=== PATIENT | female | born 1975 | race Caucasian/White ===

== ENCOUNTER → 2024-07-08 | Outpatient (CLI) | payer MEDICAID, SELFPAY ==
--- NOTE | 2024-07-08 12:00 | XR_ITS ---
Examination: Breast ultrasound, unilateral, right complete Date and time of exam: July 08, 2024 1217 hours INDICATIONS: Mammogram June 05, 2024 12 mm mass lower outer right breast Technique: Real-time kiser scale ultrasonographic imaging performed right breast including all 4 quadrants as well as nipple retroareolar and axillary region. Findings: 12:00 irregular nodule 3 x 5 mm lobular margins 1:00 circumscribed nodule 4 x 4 millimeter 2:00 irregular nodule lobular margins 5 x 4 mm 6:00 cyst 5 x 4 mm 7:00 irregular nodule indistinct margins, 8 x 10 x 11 mm IMPRESSION: BI-RADS Category 4: Suspicious for malignancy Suspicious mass 7:00 position right breast, biopsy is needed to exclude breast carcinoma, this mass is amenable to ultrasound-guided breast biopsy for diagnosis
--- NOTE | 2024-07-08 13:00 | XR_ITS ---
Examination: Diagnostic digital mammography, unilateral, right Computer aided detection 3-D breast Tomosynthesis, unilateral Date and time of exam: July 08, 2024 1244 hours INDICATIONS: Outside mammogram June 05, 2024 12 mm mass lower outer quadrant right breast Technique: Nonmagnified MLO, CC views of the right breast have been obtained, reconstructed from 3-D Tomosynthesis images. R2 computer aided detection program utilized for evaluation of suspicious masses and/or abnormal calcifications. 3-D Tomosynthesis images obtained. Findings: Scattered areas of fibroglandular density Spiculated mass is confirmed outer upper right breast Impression: BI-RADS category 4: Suspicious for malignancy Suspicious mass upper outer right breast, biopsy of this mass under mammographic guidance is needed to exclude breast carcinoma Also please see the breast ultrasound report today and recommendations for additional biopsies
== END | disposition home or self-care (01) ==
PROVIDERS: PCP Physician Assistant; Referring Provider Physician Assistant; Visit Provider Physician Assistant
DX: R92.341 Mammographic extreme density, right breast (principal); N63.11 Unspecified lump in the right breast, upper outer quadrant; N63.13 Unspecified lump in the right breast, lower outer quadrant
CPT/HCPCS: 76641; 77061; 77065; G0279

== ENCOUNTER → 2024-08-07 | Outpatient (CLI) | payer MEDICAID, SELFPAY ==
[2024-08-07 10:08] LABS: Basophils # (Auto) 0.1 Thou/mm3 (0.0-0.2); Basophils % (Auto) 1 % (0-2.5); Eosinophils # (Auto) 0.1 Thou/mm3 (0.0-0.5); Eosinophils % (Auto) 2 % (0-10); Hematocrit 38.1 % (36.0-46.0); Hemoglobin 12.9 g/dL (12.0-16.0); Immature Granulocytes % (Auto) 1 % (0-0); Immature Granulocytes Auto 0.04 Thou/mm3 (0.00-0.00); Lymphocytes % (Auto) 12 % (10-50); Mean Corpuscular HGB Conc 33.9 g/dl (31.0-37.0); Mean Corpuscular Hemoglobin 31.1 pg (25.0-35.0); Mean Corpuscular Volume 92 fL (80-100); Monocytes # (Auto) 0.5 Thou/mm3 (0.0-0.8); Monocytes % (Auto) 6 % (0-12); Neutrophils # (Auto) 6.5 Thou/mm3 (1.8-7.7); Neutrophils % (Auto) 79 % (37-80); Nucleated Red Blood Cell % 0 /100 WBC (0); Platelet Count 288 Thou/mm3 (140-440); RDW Standard Deviation 42.4 fL (36.4-46.3); Red Blood Count 4.15 Miln/mm3 (4.00-5.20); White Blood Count 8.2 Thou/mm3 (3.6-11.0)
[2024-08-07 10:20] LABS: Partial Thromboplastin Time 32.1 Seconds (22.0-36.0); Prothrombin Time 11.2 Seconds (9.0-12.2)
[2024-08-07 10:26] LABS: HCG,Qualitative Serum Negative
--- NOTE | 2024-08-08 08:30 | XR_ITS ---
Examination: Stereotactic guided vacuum assisted right breast biopsy with clip placement Specimen radiograph Date and time of exam:August 08, 2024 0907 hours INDICATIONS: Mammogram July 08, 2024 BI-RADS 4 suspicious spiculated mass outer upper right breast Timeout performed, documenting correct patient, order, referring physician, patient's site and reason for procedure, allergies to medications Informed consent provided. Time out performed Technique: The lesion right breast was localized with a stereotactic apparatus. Local anesthesia was obtained after prepping the skin at the entrance site and applying sterile drape Maximum sterile barrier technique. Or core biopsies were then obtained, vacuum assisted, stereotactically guided, at the lesion site. Specimens appear adequate. Stereotactic breast marker was introduced at the lesion site Estimated blood loss 2 cc. Patient tolerated the procedure well and appeared in satisfactory and stable condition at completion of the procedure Pathology report to follow Impression: Successful stereotactic breast biopsy as described above. .
== END | disposition home or self-care (01) ==
PROVIDERS: Radiology Diagnostic Radiology; PCP Physician Assistant; Referring Provider Physician Assistant; Visit Provider Physician Assistant
DX: D24.2 Benign neoplasm of left breast (principal); N60.11 Diffuse cystic mastopathy of right breast; R92.0 Mammographic microcalcification found on diagnostic imaging of breast
CPT/HCPCS: 19081; 36415; 84703; 85025; 85610; 85730; A4648; A4649

== ENCOUNTER → 2024-09-19 | Outpatient (CLI) | payer MEDICAID, SELFPAY ==
[2024-09-18 12:19] LABS: Basophils % (Auto) 1 % (0-2.5); Eosinophils # (Auto) 0.2 Thou/mm3 (0.0-0.5); Eosinophils % (Auto) 3 % (0-10); Hematocrit 36.8 % (36.0-46.0); Hemoglobin 12.7 g/dL (12.0-16.0); Immature Granulocytes % (Auto) 0 % (0-0); Immature Granulocytes Auto 0.02 Thou/mm3 (0.00-0.00); Lymphocytes # (Auto) 1.6 Thou/mm3 (1.0-4.8); Lymphocytes % (Auto) 26 % (10-50); Mean Corpuscular HGB Conc 34.5 g/dl (31.0-37.0); Mean Corpuscular Volume 90 fL (80-100); Monocytes # (Auto) 0.4 Thou/mm3 (0.0-0.8); Monocytes % (Auto) 6 % (0-12); Neutrophils % (Auto) 64 % (37-80); Nucleated Red Blood Cell % 0 /100 WBC (0); Platelet Count 359 Thou/mm3 (140-440); RDW Standard Deviation 45.8 fL (36.4-46.3); White Blood Count 6.2 Thou/mm3 (3.6-11.0)
[2024-09-18 12:35] LABS: Prothrombin Time 10.9 Seconds (9.0-12.2)
[2024-09-18 12:37] LABS: Beta HCG,Quantitative < 1 mIU/mL (<5.0)
--- NOTE | 2024-09-19 10:30 | XR_ITS ---
Examinations: Ultrasound-guided percutaneous breast biopsy, right breast 7:00 nodule Right breast sonography limited INDICATIONS: BI-RADS 4 suspicious nodule 12:00 position right breast right breast sonogram July 08, 2024. Exam date and time: September 19 11:20 AM. Informed consent provided. Technique: A timeout was completed verifying correct patient, procedure, site, positioning, and special equipment if applicable Informed consent provided. The patient was placed in a supine position for the breast biopsy. Sonographic images of the breast were performed for localization of the suspicious nodule The patient's breast was prepped and draped in sterile fashion. Maximum sterile barrier technique, hand hygiene, ultrasound sterile technique 1% lidocaine was used to anesthetize the skin and breast adjacent to the suspicious nodule. Utilizing ultrasonographic guidance, 8 core biopsies were obtained of the suspicious nodule utilizing an 18-gauge BioPince needle. The specimens appears satisfactory. US guided breast biopsy marker placement. Estimated blood loss 3 cc. The patient tolerated the procedure well and there were no complications. Impression: Successful ultrasound-guided percutaneous breast biopsy, right breast 7:00 nodule. Ultrasound guided breast biopsy marker placement.
== END | disposition home or self-care (01) ==
LOC: SDIM 10:04
PROVIDERS: Radiology Diagnostic Radiology; PCP Physician Assistant; Referring Provider Physician Assistant; Visit Provider Physician Assistant
DX: C50.511 Malignant neoplasm of lower-outer quadrant of right female breast (principal); Z17.0 Estrogen receptor positive status [ER+]; Z17.31 Human epidermal growth factor receptor 2 positive status; Z17.21 Progesterone receptor positive status; Z01.812 Encounter for preprocedural laboratory examination
CPT/HCPCS: 19083; 36415; 84702; 85025; 85610; 85730; A4648

== ENCOUNTER → 2024-10-24 | Outpatient (CLI) | payer MEDICAID, SELFPAY ==
--- NOTE | 2024-10-24 13:30 | XR_ITS ---
Examination: MRI bilateral breasts without intravenous contrast MRI bilateral breasts with intravenous contrast Date and time: October 24, 2024, 1403 hours Comparison breast biopsy September 19, 2024 BI-RADS 4 suspicious nodule 12:00 position right breast positive for malignancy INDICATIONS: Ultrasound-guided biopsy September 19, 2024 7:00 nodule right breast positive for breast cancer TECHNIQUE AND FINDINGS: Bilateral breast MRI images pre and post intravenous administration 15 cc gadolinium Scattered areas of fibroglandular density Mild background breast enhancement 7:00 mass spiculated margins 13 x 12 mm Rapid wash-in and washout on the postcontrast analysis Additional suspicious mass lesions not identified No chest wall mass No pathologic lymphadenopathy IMPRESSION: BI-RADS Category 5, biopsy-positive lesion for breast carcinoma 7:00 position right breast, 13 x 12 mm
== END | disposition home or self-care (01) ==
LOC: SMRI 13:07
PROVIDERS: PCP Physician Assistant; Referring Provider Surgery; Visit Provider Surgery
DX: C50.511 Malignant neoplasm of lower-outer quadrant of right female breast (principal)
CPT/HCPCS: 77049; A9579; C8908

== ENCOUNTER 2024-11-13 10:57 | Outpatient (RCR) | payer MEDICAID, SELFPAY ==
--- NOTE | 2024-11-04 02:25 | CTCCONSULT_ITS ---
Patient: NAEL DANIELS : 1975 MR#: [id number] Page 2 of 3 CONSULTATION NOTE DATE OF CONSULTATION: 10/30/2024 NAME: NAEL DANIELS ACCOUNT: [id number] : 1975 AGE: 48 REFERRING PHYSICIAN: Bruce Barragan MD PRIMARY PHYSICIAN: REASON FOR VISIT: Establishing care for invasive ductal carcinoma of the right breast ONCOLOGY HISTORY: DIAGNOSIS: Invasive ductal carcinoma of the right breast DATE OF DIAGNOSIS: 09/19/2024 PATHOLOGY: Invasive ductal carcinoma of the right breast ER/KS positive HER2 1+ STAGE/TNM: Pending TREATMENT HISTORY: Care?Plan Start?Date Cycle Day Intent HISTORY OF PRESENT ILLNESS: 48-year-old male who is diagnosed with right breast cancer after routine screening mammogram. Patient had 2 spots on the right breast. First biopsy was done on July 2024 of the right upper quadrant which showed only fibrocystic changes. Second biopsy completed on 09/19/2024 showed invasive ductal carcinoma. Breast mass is nonpalpable 09/19/2024 breast right ultrasound-guided biopsy shows invasive ductal carcinoma ER more than 90% KS more than 90% HER2 1+ OTHER MEDICAL HISTORY/CONDITIONS: DENIES KNEE?REPAIR??L??2013 FAMILY HISTORY: Patient?denies?family?cancer?history. 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 tamoxifen - 20 mg 1 tab Daily 2. Wegovy - 0.25 mg Weekly Medications Last Reconciled by Liliya Zhong LVN on 10/31/2024 ALLERGIES: No Known Drug Allergies REVIEW OF SYSTEMS: A complete 14-point review of systems was performed and is negative except as noted in interval history. PHYSICAL EXAMINATION: VITAL SIGNS: Temperature?99.4, B/P?114/82, Height?64?inches Weight?174?lbs PAIN: 0 - No pain ECOG Performance Status: 0 - Asymptomatic and fully active GENERAL APPEARANCE: Appears well, in no apparent distress, appropriately interactive. HEENT: Normocephalic, no temporal wasting, normal conjunctiva, no scleral icterus, normal hearing, lips without lesions, neck normal range of motion. CARDIOVASCULAR: Not assessed. PULMONARY: Normal respiratory effort, no respiratory distress or use of accessory muscles, speaking in full sentences, no tachypnea. EXTREMITIES: No pedal edema or cyanosis. SKIN: Normal skin appearance. NEUROLOGIC: Alert and oriented x4. PSHYCHIATRIC: Appropriate affect, mood normal, behavior normal, intact thought and speech. LABORATORY DATA: I have personally reviewed and interpreted each of the patient?s relevant lab tests, abnormal findings are below: Date ASSESSMENT/PLAN: Right invasive ductal carcinoma ER/KS positive HER2 1+ Surgery referral for lumpectomy Radiation oncology referral Will start on antiendocrine therapy Patient can start after surgery Oncotype DX Will do hormone testing MARK Patient already have follow-up with Dr. Yves Poon ORDERS: Order # Description [id number] MD Follow Up 4 Week [id number] Estradiol + Gonadotropin (Fsh) + Gonadotropin; Luteinizing Hormone (Lh) RETURN TO CLINIC: I reviewed the diagnosis, prognosis, and recommended treatment/procedure options with the patient (and/or their legal healthcare representative), including the potential benefits, risks, side effects and alternative therapies. We also discussed the option of no treatment and the possibility of clinical trial participation, if applicable. All questions were addressed, and they demonstrated understanding. They provided informed consent to proceed with the proposed plan of care. BILLING AND COMPLIANCE: I reviewed external records from providers outside my specialty as summarized above. I spent a total of 50 minutes on this patient?s care on the day of their visit excluding time spent related to any billed procedures. This time includes time spent with the patient as well as time spent documenting in the medical record, reviewing patients records and tests, obtaining history, placing orders, communicating with other healthcare professionals, counseling the patient, family or caregiver, and/or care coordination for the diagnoses above. Electronically Signed by: Brian Arias MD T: 2:23 AM CC: PCP: Referring: Bruce Barragan This document was completed utilizing speech recognition software. Grammatical errors, random word insertions, pronoun errors, and incomplete sentences are an occasional consequence of this system due to software limitations, ambient noise, and hardware issues. Any formal questions or concerns about the content, text or information contained within the body of this dictation should be directly addressed to the provider for clarification.
== END 2024-11-24 23:59 | disposition home or self-care (01) ==
LOC: SCTC 10:57
PROVIDERS: PCP Physician Assistant; Referring Provider Physician Assistant; Visit Provider Radiology Therapeutic Radiology
DX: C50.511 Malignant neoplasm of lower-outer quadrant of right female breast (principal); Z17.0 Estrogen receptor positive status [ER+]; Z17.21 Progesterone receptor positive status; Z17.32 Human epidermal growth factor receptor 2 negative status
CPT/HCPCS: 99212; 99213; G0463

== ENCOUNTER 2024-12-03 10:25 | Outpatient (RCR) | payer MEDICAID, SELFPAY ==
--- NOTE | 2024-12-03 15:15 | CTCFLWUP_ITS ---
Patient: NAEL DANIELS : 1975 Page 2 of 3 FOLLOW UP NOTE DATE OF SERVICE: 12/03/2024 NAME: NAEL DANIELS ACCOUNT: [id number] : 1975 AGE: 48 INTERVAL HISTORY: Scheduled for surgery ONCOLOGY HISTORY: DIAGNOSIS: Invasive ductal carcinoma of the right breast DATE OF DIAGNOSIS: 09/19/2024 PATHOLOGY: Invasive ductal carcinoma of the right breast ER/AL positive HER2 1+ STAGE/TNM: Pending TREATMENT HISTORY: Care?Plan Start?Date Cycle Day Intent HISTORY OF PRESENT ILLNESS: 48-year-old male who is diagnosed with right breast cancer after routine screening mammogram. Patient had 2 spots on the right breast. First biopsy was done on July 2024 of the right upper quadrant which showed only fibrocystic changes. Second biopsy completed on 09/19/2024 showed invasive ductal carcinoma. Breast mass is nonpalpable 09/19/2024 breast right ultrasound-guided biopsy shows invasive ductal carcinoma ER more than 90% AL more than 90% HER2 1+ OTHER MEDICAL HISTORY/CONDITIONS: DENIES KNEE?REPAIR??L??2013 FAMILY HISTORY: Patient?denies?family?cancer?history. 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 tamoxifen - 20 mg 1 tab Daily 2. Wegovy - 0.25 mg Weekly Medications Last Reconciled by Veronica Llanos MD on 12/03/2024 ALLERGIES: No Known Drug Allergies REVIEW OF SYSTEMS: A complete 14-point review of systems was performed and is negative except as noted in interval history. PHYSICAL EXAMINATION: VITAL SIGNS: Temperature?98.6, B/P?118/81, Oxygen?Saturation?97% Weight?173?lbs (Change?since?8/20/25:?1?lbs) PAIN: 0 - No pain GENERAL APPEARANCE: Appears well, in no apparent distress, appropriately interactive. HEENT: Normocephalic, no temporal wasting, normal conjunctiva, no scleral icterus, normal hearing, lips without lesions, neck normal range of motion. CARDIOVASCULAR: Not assessed. PULMONARY: Normal respiratory effort, no respiratory distress or use of accessory muscles, speaking in full sentences, no tachypnea. EXTREMITIES: No pedal edema or cyanosis. SKIN: Normal skin appearance. NEUROLOGIC: Alert and oriented x4. PSHYCHIATRIC: Appropriate affect, mood normal, behavior normal, intact thought and speech. LABORATORY DATA: I have personally reviewed and interpreted each of the patient?s relevant lab tests, abnormal findings are below: Date ASSESSMENT/PLAN: Right invasive ductal carcinoma ER/AL positive HER2 1+ Follow with Dr Hawkins Radiation oncology referral Will start on antiendocrine therapy after surgery Patient can start after surgery Oncotype DX Still pre menopausal Patient already have follow-up with Dr. Yves Poon ORDERS: Order # Description [id number] Comprehensive Metabolic Panel - 12 + CBC with Auto Diff + CA 15-3 + [id number] Follow Up 3 Week RETURN TO CLINIC: I reviewed the diagnosis, prognosis, and recommended treatment/procedure options with the patient (and/or their legal customer operations representative), including the potential benefits, risks, side effects and alternative therapies. We also discussed the option of no treatment and the possibility of clinical trial participation, if applicable. All questions were addressed, and they demonstrated understanding. They provided informed consent to proceed with the proposed plan of care. BILLING AND COMPLIANCE: I reviewed external records from providers outside my specialty as summarized above. I spent a total of 50 minutes on this patient?s care on the day of their visit excluding time spent related to any billed procedures. This time includes time spent with the patient as well as time spent documenting in the medical record, reviewing patients records and tests, obtaining history, placing orders, communicating with other healthcare professionals, counseling the patient, family or caregiver, and/or care coordination for the diagnoses above. Electronically Signed by: Brian Arias MD T: 3:13 PM CC: PCP: Referring: Bruce Barragan This document was completed utilizing speech recognition software. Grammatical errors, random word insertions, pronoun errors, and incomplete sentences are an occasional consequence of this system due to software limitations, ambient noise, and hardware issues. Any formal questions or concerns about the content, text or information contained within the body of this dictation should be directly addressed to the provider for clarification.
== END 2024-12-24 23:59 | disposition home or self-care (01) ==
LOC: SCTC 10:25
PROVIDERS: PCP Physician Assistant; Referring Provider Physician Assistant; Visit Provider Internal Medicine Hematology & Oncology
DX: C50.511 Malignant neoplasm of lower-outer quadrant of right female breast (principal); Z17.0 Estrogen receptor positive status [ER+]; Z17.21 Progesterone receptor positive status; Z17.32 Human epidermal growth factor receptor 2 negative status; Z90.11 Acquired absence of right breast and nipple
CPT/HCPCS: 99212; G0463

== ENCOUNTER 2025-01-23 08:24 | Outpatient (RCR) | payer MEDICAID, SELFPAY | END 2025-01-24 23:59 | disposition home or self-care (01) | LOC: SCTC 08:24 | PROVIDERS: PCP Physician Assistant; Referring Provider Physician Assistant; Visit Provider Radiology Therapeutic Radiology | DX: C50.511 Malignant neoplasm of lower-outer quadrant of right female breast (principal); Z17.0 Estrogen receptor positive status [ER+]; Z17.21 Progesterone receptor positive status; Z17.32 Human epidermal growth factor receptor 2 negative status; Z90.11 Acquired absence of right breast and nipple; Z79.810 Long term (current) use of selective estrogen receptor modulators (SERMs) | CPT/HCPCS: 99212; 99213; G0463 ==

== ENCOUNTER 2025-02-19 08:35 | Outpatient (RCR) | payer MEDICAID, SELFPAY ==
--- NOTE | 2025-02-06 06:42 | CTCSNOTE_ITS ---
[facility] [address] [place], [place] [address] CT Simulation Note Date: 02/06/2025 MR# [id number] Name: NAEL DNAIELS : 1975 (A) DIAGNOSIS: C50.911 Malignant neoplasm of unspecified site of right femle breast (B) Patient was placed in supine position and used vaklok for immobilization purposes. (C) CT slices included R breast (D) 3 D Will be needed for maximum sparing of adjacent normal critical structures. (E) Patient tolerated the simulation well and left the room in good condition. Electronically signed by: Juan Portillo MD, JARETR 02/06/2025 6:39 AM
== END 2025-02-23 23:59 | disposition home or self-care (01) ==
LOC: SCTC 08:35
PROVIDERS: PCP Physician Assistant; Referring Provider Physician Assistant; Visit Provider Radiology Therapeutic Radiology
DX: Z51.0 Encounter for antineoplastic radiation therapy (principal); C50.511 Malignant neoplasm of lower-outer quadrant of right female breast; Z17.0 Estrogen receptor positive status [ER+]; Z17.21 Progesterone receptor positive status; Z17.32 Human epidermal growth factor receptor 2 negative status; Z79.810 Long term (current) use of selective estrogen receptor modulators (SERMs)
CPT/HCPCS: 36415; 77014; 77280; 77290; 77295; 77300; 77334; 77336; 77412; 77417

== ENCOUNTER 2025-03-13 08:36 | Outpatient (RCR) | payer MEDICAID, SELFPAY ==
--- NOTE | 2025-02-24 15:37 | CTCTRTNOTE_ITS ---
[facility] [address] [place], [place] [address] Weekly Management Date: 02/24/2025 ?? Name: JUNE JEREMIAH Tran.: 1975 A. Patient is currently at 1602 cGy. B. Patient is tolerating treatment well. Mary Ellen Olmstead Resume radiation therapy. Electronically signed by: Juan Portillo M.D. 02/24/2025 3:35 PM
== END 2025-03-26 23:59 | disposition home or self-care (01) ==
LOC: SCTC 08:36
PROVIDERS: PCP Physician Assistant; Referring Provider Physician Assistant; Visit Provider Radiology Therapeutic Radiology
DX: Z51.0 Encounter for antineoplastic radiation therapy (principal); C50.511 Malignant neoplasm of lower-outer quadrant of right female breast; Z17.0 Estrogen receptor positive status [ER+]; Z17.21 Progesterone receptor positive status; Z17.32 Human epidermal growth factor receptor 2 negative status; Z90.11 Acquired absence of right breast and nipple
CPT/HCPCS: 77290; 77300; 77332; 77336; 77412; 77417